=== PATIENT | male | born 1950 | race Caucasian/White ===

== ENCOUNTER 2020-03-21 11:26 | Inpatient (IN) | payer MEDICARE, OTHER ==
[~2020-03-21] VITALS: Ht 177.8 cm; Wt 78.9 kg
--- NOTE | 2020-03-21 11:31 | NUR ---
CALLED IN ED WAITING ROOM. NO ANSWER.
--- NOTE | 2020-03-21 11:44 | NUR ---
BIB FACILITY STAFF FOR MEDICAL CLERANCE FOR VIJAYA PSYCH ADMIT, COMBATIVE TO STAFF, TO ER BED 11, HOOKED TO MONITOR, CHANGED TO HOSP GOWN, WARM BLANKET PROVIDED, PATIENT STATES "I DON'T KNOW WHY AM I HERE, I DON'T WANT TO GO BACK TO THAT FACILITY AND I WANT TO GO HOME". EXPLAINED THE REASON WHY, PATIENT AGREED TO COOPERATE.
--- NOTE | 2020-03-21 11:44 | NUR ---
DR GARCIA AT BEDSIDE
[2020-03-21] MEDS ORDERED: ASCO-352 PO (11:57)
[2020-03-21] MEDS ORDERED: LEVE500T20 PO (11:57)
[2020-03-21] MEDS ORDERED: MAGN400O6 PO (11:57)
[2020-03-21] MEDS ORDERED: ATOR10TA PO (11:57)
[2020-03-21] MEDS ORDERED: ASPI-1169 PO (11:57)
[2020-03-21] MEDS ORDERED: ACET-868 PO (11:57)
[2020-03-21] MEDS ORDERED: CHOL100062 PO (11:57)
[2020-03-21] MEDS ORDERED: FAMO20TA8 PO (11:57)
[2020-03-21] MEDS ORDERED: DILT90TA10 PO (11:57)
[2020-03-21] MEDS ORDERED: LISI-603 PO (11:57)
[2020-03-21] MEDS ORDERED: VITA1TAB56 PO (11:57)
[2020-03-21 12:03] LABS: BASOPHILS # (AUTO) 0.1 /CMM (0.0-0.2); BASOPHILS % (AUTO) 0.8 % (0.0-2.0); EOSINOPHILS % (AUTO) 1.5 % (0.0-6.0); HEMATOCRIT 44 % (39-51); HEMOGLOBIN 14.6 g/dL (13.5-17.5); LYMPHOCYTES # (AUTO) 1.8 /CMM (0.8-4.8); LYMPHOCYTES % (AUTO) 26.6 % (20.0-44.0); MEAN CORPUSCULAR HGB CONC 34 g/dl (31.0-36.0); MEAN CORPUSCULAR VOLUME 94 fL (80-96); MONOCYTES # (AUTO) 0.8 /CMM (0.1-1.30); NEUTROPHILS # (AUTO) 3.9 /CMM (1.8-8.9); NEUTROPHILS % (AUTO) 59.1 % (43.0-81.0); PLATELET COUNT (AUTO) 193 /CMM (150-450); RED BLOOD CELL COUNT(AUTO) 4.62 MIL/uL (4.5-6.0); WHITE BLOOD COUNT (AUTO) 6.6 K/uL (4.3-11.0)
[2020-03-21 12:10] LABS: CALCIUM, SERUM 9.2 mg/dL (8.5-10.1); CARBON DIOXIDE 28 mmol/L (21-32); CHLORIDE 103 mmol/L (98-107); CREATININE 0.8 mg/dL (0.6-1.3); GLUCOSE 114 mg/dL (74-106); POTASSIUM 3.7 mmol/L (3.5-5.1); SODIUM SERUM 140 mmol/L (136-145); UREA NITROGEN, BLOOD 13 mg/dL (7-18)
--- NOTE | 2020-03-21 12:11 | NUR ---
CALLED PIZZA HUT ASSISTANT FOR EVAL, LEFT VOICEMAIL
[2020-03-21 12:16] LABS: ALANINE AMINOTRANSFERASE 27 U/L (12-78); ALBUMIN 4.2 g/dL (3.4-5.0); ALCOHOL, BLOOD < 3 mg/dL (0-0); ALKALINE PHOSPHATASE 104 U/L (46-116); ASPARTATE AMINOTRANSFERASE 16 U/L (15-37); BILIRUBIN,DIRECT 0.3 mg/dL (0.0-0.2); BILIRUBIN,TOTAL 1.2 mg/dL (0.2-1.0); TOTAL PROTEIN, SERUM 8.2 g/dL (6.4-8.2)
[2020-03-21 12:18] LABS: ACETAMINOPHEN < 10 ug/ml (10-30); SALICYLATE < 2.8 mg/dL (2.8-20.0)
[2020-03-21] MEDS ORDERED: OLANZAPINE 10 MG VIAL IM ONE ×2 (13:35→14:00)
--- NOTE | 2020-03-21 13:47 | NUR ---
URINE SAMPLE COLLECTED AND SENT TO LAB
--- NOTE | 2020-03-21 13:50 | NUR ---
RADAR MECHANIC JONAS BELL 30 MIN
[2020-03-21 13:54] LABS: APPEARANCE,URINE Clear (CLEAR); BILIRUBIN,URINE Negative (NEGATIVE); BLOOD, URINE Negative Ery/uL (NEGATIVE); COLOR,URINE Yellow (YELLOW); KETONES,URINE Negative (NEGATIVE); LEUKOCYTE ESTERASE ,URINE Trace (NEGATIVE); NITRITE, URINE Negative (NEGATIVE); PH,URINE 6.5 (5.0-8.0); PROTEIN,URINE Negative (NEGATIVE); UGLUCOSE Negative (NEGATIVE); UROBILINOGEN,URINE 0.2 EU/dL (0.2)
[2020-03-21 14:09] LABS: BACTERIA,URINE Rare /HPF (None Seen); RBC,URINE 0-2 /HPF (0-2); WBC,URINE 0-2 /HPF (0-3)
--- NOTE | 2020-03-21 16:01 | NUR ---
REPORT GIVEN TO ANGELICA BEARDEN OF GPS
--- NOTE | 2020-03-21 17:53 | NUR ---
GPS RN ADMITTING NOTE : GPS ADMISSION NOTE, RECEIVED PATIENT FROM [facility] . PATIENT ADMITTED ON A 5150 HOLD FOR DTO/GD PER HOLD PATIENT WERE AGITATED IN THE FACILITY THE 5150 WAS REVIEWED AND THE DOCUMENTATION IN THE 5150 HOLD APPEARS TO REFLECT THE PRESENTATION OF THE PATIENT. UPON FACE TO FACE ASSESSMENT PATIENT IS CURRENTLY AWAKE, HAS NO S/S OR COMPLAINTS OF PAIN. PATIENT IS DISPLAYING NO S/S OF APPARENT DISTRESS. PATIENT BREATHING IS UNLABORED WITH EQUAL RISE AND FALL OF THE CHEST. PATIENT IS ALERT AND ORIENTATED X 1 ON ROOM AIR. PATIENT IS NOTED TO BEING CONFUSED DELUSIONAL, DISHEVELED, DISORGANIZED,UNCOOPERATIVE, AND NEEDS REDIRECTION. PATIENT DENIES SUICIDE IDEATIONS AND HOMICIDAL IDEATIONS AT THIS TIME. PATIENT BELONGINGS WERE INVENTORIED AND CHECKED FOR CONTRABAND. ALL CONTRABAND REMOVED AND STORED IN PATIENT HALLWAY LOCKER. PATIENT ADVANCED DIRECTIVES PREFERENCE, IMMUNIZATIONS QUESTIONER COMPLETED. PATIENT BED SIDE RAILS ARE UP X 2 FOR SAFETY. PATIENT BED IS LOCKED, LOW AND I WILL CONTINUE TO MONITOR THIS PATIENT Q 15 MIN WITH THE HELP OF STAFF TO MAINTAIN SAFETY.WILL INDORSE TO INCOMING SHIFT RN FOR FULL ADMISSION AND CONTINUATION OF CARE.
[2020-03-21] MEDS ORDERED: TEMAZEPAM 7.5 MG CAPSULE PO PRN (18:00)
[2020-03-21] MEDS ORDERED: MAGNESIUM HYDROXIDE 30 ML UDC PO PRN ×2 (18:00)
[2020-03-21] MEDS ORDERED: BLOOD SUGAR DIAGNOSTIC 1 EACH STRIP IN ONE (18:00)
[2020-03-21] MEDS ORDERED: clonazePAM 0.5 MG TABLET PO PRN (18:00)
[2020-03-21] MEDS ORDERED: MAG HYDROX/AL HYDROX/SIMETH 30 ML UDC PO PRN (18:00)
[2020-03-21] MEDS ORDERED: ACETAMINOPHEN 325 MG TABLET PO PRN ×2 (18:00)
--- NOTE | 2020-03-21 19:01 | NUR ---
RECEIVED PATIENT IN BED AWAKE, ALERT, PACING IN HALLWAY NO ACUTE DISTRESS NOTED. PATIENT ANXIOUS, PARANOID, UNCCOERTIVE ,AGGRESSIVE REMAINS CONFUSED, NEEDY, DISORGANIZED, FORGETFUL, NEEDS FREQUENT REDIRECTION, REALITY ORIENTATION PROVIDED. SAFETY PRECAUTIONS IMPLEMENTED WILL CONTINUE TO MONITOR Q15MIN ROUNDS FOR SAFETY AND BEHAVIOR.
--- NOTE | 2020-03-21 20:00 | NUR ---
RN NOTES : REFUSE SKIN ASSESSMENT PT. REFUSED SKIN ASSESSMENT AND PICTURES , ENCOURAGED X3 PT. STRONGLY REFUSED , PER PT. MY SKIN IS OK AND I DONT WANT CHECK MY SKIN, PT. BEHAVIOUR VERY UNCOOERTIVE AGGRESSIVE PARANOID , NOT FOLLOWING ANY REDIRECTIONS , WILL CONTINUITY WITH CARE
[2020-03-21 21:00] VITALS: BP 136/78
[2020-03-21] MEDS: DILTIAZEM HCL 30 MG TABLET PO SCH (21:34)
[2020-03-21] MEDS: LISINOPRIL (20MG) 20 MG TABLET PO SCH (21:35)
[2020-03-21] MEDS: LEVETIRACETAM (250 MG) 250 MG TABLET PO SCH (21:35)
[2020-03-21] MEDS: ATORVASTATIN 10 MG TABLET PO SCH (21:36)
--- NOTE | 2020-03-22 06:50 | NUR ---
RN NOTES: PT. RESTING HIS ROOM , NO ACUTE CHANGES NOTED, ALL NEEDS ANTICIPATED, WILL CONTINUITY WITH CARE PT. REFUSED SKIN ASSESSMENT AND PICTURES , ENCOURAGED X3 , RISKS AND BENEFITS EXPLAINED, BUT PT. STRONGLY REFUSED , PER PT. MY SKIN IS OK AND I DONT WANT CHECK MY SKIN , WILL CONTINUITY WITH CARE.
[2020-03-22 07:18] LABS: ALBUMIN 3.6 g/dL (3.4-5.0); BILIRUBIN,TOTAL 1.2 mg/dL (0.2-1.0); CALCIUM, SERUM 9.2 mg/dL (8.5-10.1); CREATININE 0.9 mg/dL (0.6-1.3); POTASSIUM 3.9 mmol/L (3.5-5.1)
[2020-03-22 07:23] LABS: CHOLESTEROL 109 mg/dL (<200); HDL CHOLESTEROL 60 mg/dL (40-60); LDL 36 mg/dL (0-99); TRIGLYCERIDES 43 mg/dL (30-150)
[2020-03-22 08:00] VITALS: BP 137/67
[2020-03-22] MEDS: ASPIRIN 81 MG TAB.CHEW PO SCH (08:41)
[2020-03-22] MEDS: DILTIAZEM HCL 30 MG TABLET PO SCH ×4 (08:41→21:57)
[2020-03-22] MEDS: LEVETIRACETAM (250 MG) 250 MG TABLET PO SCH ×2 (08:41→21:58)
[2020-03-22] MEDS: LISINOPRIL (20MG) 20 MG TABLET PO SCH ×2 (08:42→21:58)
[2020-03-22] MEDS: FAMOTIDINE (20 MG) 20 MG TABLET PO SCH ×2 (08:44→17:01)
[2020-03-22] MEDS: CHOLECALCIFEROL 1,000 UNIT TABLET (VIT D3) PO SCH (09:00)
[2020-03-22] MEDS: ASCORBIC ACID 500 MG TABLET PO SCH (09:00)
[2020-03-22] MEDS: VITAMIN B COMP W-C 1 TAB TABLET PO SCH (09:00)
--- NOTE | 2020-03-22 09:31 | NUR ---
SNF CONTACT: SW contacted [facility] Address: [address] , [place] [address] and spoke with Michelle, admissions advisor who stated pt is able to return to the facility once stable for discharge. Per Michelle, pt does not have any family in [place] and has one sister that lives in [place] who is not involved with pts care. Per facility pt does not have capacity to make his own decisions and has been there since August 2019 and has been diagnosed with Dementia with Behavioral Disturbance. Per Michelle, there is no other collateral information on pt as pt is a poor historian and only alert to himself.
--- NOTE | 2020-03-22 09:45 | NUR ---
GPS RN note: med refusal Patient began refusing meds due to amount of pills. patient is aox1, paranoid, and unable to comprehend education for med management. Patient was convinced to take most medications but vitamins were withheld. Will attempt again later. Will continue to monitor Q15 for mood, safety and behavior.
--- NOTE | 2020-03-22 10:43 | NUR ---
INITIAL DISCHARGE PLAN: Pt will return to [facility] Address: [address] , [place] [address] once stable for discharge. SW will help form a safe and proper discharge in collaboration with .
--- NOTE | 2020-03-22 12:14 | NUR ---
GPS RN Note: Ditalizem BP med held for pulse of 59. will continue to monitor Q15
[2020-03-22 16:00] VITALS: BP 112/59
[2020-03-22] MEDS: OLANZAPINE 5 MG TABLET PO SCH (17:01)
[2020-03-22 19:30] VITALS: BP 119/55
[2020-03-22] MEDS: ATORVASTATIN 10 MG TABLET PO SCH (21:59)
[2020-03-23 08:00] VITALS: BP 113/61
[2020-03-23] MEDS: CHOLECALCIFEROL 1,000 UNIT TABLET (VIT D3) PO SCH (08:23)
[2020-03-23] MEDS: ASPIRIN 81 MG TAB.CHEW PO SCH (08:23)
[2020-03-23] MEDS: OLANZAPINE 5 MG TABLET PO SCH ×2 (08:23→16:31)
[2020-03-23] MEDS: VITAMIN B COMP W-C 1 TAB TABLET PO SCH (08:23)
[2020-03-23] MEDS: ASCORBIC ACID 500 MG TABLET PO SCH (08:23)
[2020-03-23] MEDS: LEVETIRACETAM (250 MG) 250 MG TABLET PO SCH ×2 (08:32→21:31)
[2020-03-23] MEDS: FAMOTIDINE (20 MG) 20 MG TABLET PO SCH ×2 (08:32→16:31)
[2020-03-23] MEDS: DILTIAZEM HCL 30 MG TABLET PO SCH ×4 (08:32→21:30)
--- NOTE | 2020-03-23 09:00 | NUR ---
RN NOTE- PT DISORGANIZED, ORIENTED TO SELF ONLY INTERACTIVE THOUGH LIMITED TO ESSENTIAL NEEDS PT COULDN'T OPEN MILK CONTAINER ETC PO INTAKE GOOD MED COMPLIANT THOUGH STATED TERSELY "YEAH... ILL TAKE THEM BUT GET ME HOME" CONFUSED TO TIME DATE PURPOSE. DENIES SI HI AH VH BUT DONT TRUST HIS THINKING PROCESS
[2020-03-23] MEDS: LISINOPRIL (20MG) 20 MG TABLET PO SCH ×2 (09:01→21:32)
[2020-03-23 16:00] VITALS: BP 110/59
[2020-03-23 20:17] VITALS: BP 141/88
[2020-03-23] MEDS: ATORVASTATIN 10 MG TABLET PO SCH (21:32)
--- NOTE | 2020-03-23 21:49 | NUR ---
RN NOTES : REFUSE SKIN ASSESSMENT PT. REFUSED SKIN REASSESSMENT AND PICTURES , ENCOURAGED X3 PT. STRONGLY REFUSED , PER PT. MY SKIN IS FINE AND I DONT WANT CHECK MY SKIN, PT. BEHAVIOUR VERY UNCOOERTIVE, PARANOID , WILL CONTINUITY WITH CARE.
--- NOTE | 2020-03-24 06:48 | NUR ---
RN NOTES: PT. RESTING HIS ROOM , NO ACUTE CHANGES NOTED, ALL NEEDS ANTICIPATED, WILL CONTINUITY WITH CARE.
[2020-03-24 08:00] VITALS: BP 105/47
[2020-03-24] MEDS: DILTIAZEM HCL 30 MG TABLET PO SCH ×6 (09:00→21:51)
[2020-03-24] MEDS: LISINOPRIL (20MG) 20 MG TABLET PO SCH ×2 (09:00→20:22)
[2020-03-24] MEDS: LEVETIRACETAM (250 MG) 250 MG TABLET PO SCH ×2 (10:58→20:21)
[2020-03-24] MEDS: ASPIRIN 81 MG TAB.CHEW PO SCH (10:59)
[2020-03-24] MEDS: ASCORBIC ACID 500 MG TABLET PO SCH (10:59)
[2020-03-24] MEDS: OLANZAPINE 5 MG TABLET PO SCH ×3 (10:59→17:56)
[2020-03-24] MEDS: VITAMIN B COMP W-C 1 TAB TABLET PO SCH (10:59)
[2020-03-24] MEDS: FAMOTIDINE (20 MG) 20 MG TABLET PO SCH ×3 (10:59→17:55)
--- NOTE | 2020-03-24 13:30 | NUR ---
PT. REFUSED AFTERNOON MEDS.CARDIZEM AND VIT.D3.
[2020-03-24] MEDS: CHOLECALCIFEROL 1,000 UNIT TABLET (VIT D3) PO SCH ×2 (13:43→13:52)
[2020-03-24 16:00] VITALS: BP 141/74
--- NOTE | 2020-03-24 18:10 | NUR ---
PT. REFUSED SANDI. MEDS-ZYPREXA,CARDIZEM AND PEPCID.TYPE PHOTOGRAPHY SUPERVISOR INFORMED.
[2020-03-24 20:00] VITALS: BP 152/72
[2020-03-24] MEDS: ATORVASTATIN 10 MG TABLET PO SCH (21:01)
[2020-03-24] MEDS ORDERED: DILTIAZEM HCL 30 MG TABLET ONE (21:47)
--- NOTE | 2020-03-25 06:46 | NUR ---
GPS-RN NOTE: PRN MOM MILK OF MAGNESIA 30ML PO GIVEN FOR CONSTIPATION. WILL CONTINUE TO MONITOR.
[2020-03-25 08:00] VITALS: BP 107/59
[2020-03-25] MEDS: DILTIAZEM HCL 30 MG TABLET PO SCH ×4 (09:00→21:36)
[2020-03-25] MEDS: OLANZAPINE 5 MG TABLET PO SCH ×2 (09:34→21:37)
[2020-03-25] MEDS: LISINOPRIL (20MG) 20 MG TABLET PO SCH ×2 (09:34→21:37)
[2020-03-25] MEDS: FAMOTIDINE (20 MG) 20 MG TABLET PO SCH ×2 (09:34→16:41)
[2020-03-25] MEDS: ASCORBIC ACID 500 MG TABLET PO SCH (09:34)
[2020-03-25] MEDS: VITAMIN B COMP W-C 1 TAB TABLET PO SCH (09:34)
[2020-03-25] MEDS: ASPIRIN 81 MG TAB.CHEW PO SCH (09:34)
[2020-03-25] MEDS: CHOLECALCIFEROL 1,000 UNIT TABLET (VIT D3) PO SCH (09:34)
[2020-03-25] MEDS: LEVETIRACETAM (250 MG) 250 MG TABLET PO SCH ×2 (09:35→21:20)
[2020-03-25 16:00] VITALS: BP 131/61
[2020-03-25 20:22] VITALS: BP 119/44
--- NOTE | 2020-03-25 21:00 | NUR ---
GPS-RN NOTE: PATIENT REFUSED SKIN BODY ASSESSMENT.
[2020-03-25] MEDS: ATORVASTATIN 10 MG TABLET PO SCH (21:20)
[2020-03-25 21:35] VITALS: BP 154/63
[2020-03-26 07:58] VITALS: BP 104/56
[2020-03-26] MEDS ORDERED: OLANZAPINE 5 MG TABLET PO SCH (09:00)
[2020-03-26] MEDS: DILTIAZEM HCL 30 MG TABLET PO SCH ×4 (09:00→21:59)
[2020-03-26] MEDS: LISINOPRIL (20MG) 20 MG TABLET PO SCH ×2 (09:00→22:00)
[2020-03-26] MEDS: CHOLECALCIFEROL 1,000 UNIT TABLET (VIT D3) PO SCH (09:05)
[2020-03-26] MEDS: LEVETIRACETAM (250 MG) 250 MG TABLET PO SCH ×2 (09:05→21:59)
[2020-03-26] MEDS: FAMOTIDINE (20 MG) 20 MG TABLET PO SCH ×2 (09:05→16:52)
[2020-03-26] MEDS: ASPIRIN 81 MG TAB.CHEW PO SCH (09:05)
[2020-03-26] MEDS: VITAMIN B COMP W-C 1 TAB TABLET PO SCH (09:05)
[2020-03-26] MEDS: ASCORBIC ACID 500 MG TABLET PO SCH (09:06)
[2020-03-26 16:00] VITALS: BP 136/72
[2020-03-26 20:19] VITALS: BP 147/57
[2020-03-26] MEDS: ATORVASTATIN 10 MG TABLET PO SCH (22:00)
[2020-03-26] MEDS: OLANZAPINE 5 MG TABLET PO SCH (22:01)
[2020-03-27 08:00] VITALS: BP 99/59
[2020-03-27] MEDS: ASCORBIC ACID 500 MG TABLET PO SCH (09:00)
[2020-03-27] MEDS: ASPIRIN 81 MG TAB.CHEW PO SCH (09:00)
[2020-03-27] MEDS: DILTIAZEM HCL 30 MG TABLET PO SCH ×4 (09:00→21:09)
[2020-03-27] MEDS: FAMOTIDINE (20 MG) 20 MG TABLET PO SCH ×2 (09:00→16:30)
[2020-03-27] MEDS: LISINOPRIL (20MG) 20 MG TABLET PO SCH ×2 (09:00→21:09)
[2020-03-27] MEDS: VITAMIN B COMP W-C 1 TAB TABLET PO SCH (09:00)
[2020-03-27] MEDS: CHOLECALCIFEROL 1,000 UNIT TABLET (VIT D3) PO SCH (09:00)
[2020-03-27] MEDS: OLANZAPINE 5 MG TABLET PO SCH ×2 (09:51→21:09)
[2020-03-27] MEDS: LEVETIRACETAM (250 MG) 250 MG TABLET PO SCH ×2 (09:52→21:09)
[2020-03-27 16:00] VITALS: BP 130/66
[2020-03-27 19:57] VITALS: BP 137/54
[2020-03-27] MEDS: ATORVASTATIN 10 MG TABLET PO SCH (21:08)
[2020-03-28 08:00] VITALS: BP_SYST 117; BP_DIAS 58; BP_DIAS 68
[2020-03-28] MEDS: OLANZAPINE 5 MG TABLET PO SCH ×2 (09:11→21:52)
[2020-03-28] MEDS: VITAMIN B COMP W-C 1 TAB TABLET PO SCH (09:11)
[2020-03-28] MEDS: FAMOTIDINE (20 MG) 20 MG TABLET PO SCH ×2 (09:11→16:58)
[2020-03-28] MEDS: CHOLECALCIFEROL 1,000 UNIT TABLET (VIT D3) PO SCH (09:11)
[2020-03-28] MEDS: ASPIRIN 81 MG TAB.CHEW PO SCH (09:11)
[2020-03-28] MEDS: LEVETIRACETAM (250 MG) 250 MG TABLET PO SCH ×2 (09:11→21:00)
[2020-03-28] MEDS: ASCORBIC ACID 500 MG TABLET PO SCH (09:12)
[2020-03-28] MEDS: LISINOPRIL (20MG) 20 MG TABLET PO SCH ×2 (09:15→21:00)
[2020-03-28] MEDS: DILTIAZEM HCL 30 MG TABLET PO SCH ×4 (11:06→21:00)
[2020-03-28 16:00] VITALS: BP 149/70
[2020-03-28 20:01] VITALS: BP 161/78
[2020-03-28] MEDS: ATORVASTATIN 10 MG TABLET PO SCH (21:52)
--- NOTE | 2020-03-28 21:52 | NUR ---
GPS RN NOTE: MEDICATION REFUSAL PT. REFUSED ALL SCHEDULED 2100 AND 2200 MEDICATIONS, ZYPREXA 7.5 MG, LIPITOR 10 MG, PRINIVIL 20 MG, CARDIZEM 90 MG, KEPPRA 500 MG. EXPLAINED RISKS AND BENEFITS. OFFERED 3 X AND STILL REFUSED. PT STATES " THAT'S TOO MANY PILLS. I DON'T WANT TO TAKE THEM." WILL CONTINUE TO MONITOR FOR SAFETY AND BEHAVIOR.
[2020-03-29 08:00] VITALS: BP 146/81
[2020-03-29] MEDS: FAMOTIDINE (20 MG) 20 MG TABLET PO SCH ×2 (09:04→16:26)
[2020-03-29] MEDS: ASCORBIC ACID 500 MG TABLET PO SCH (09:04)
[2020-03-29] MEDS: OLANZAPINE 5 MG TABLET PO SCH ×2 (09:05→21:44)
[2020-03-29] MEDS: LISINOPRIL (20MG) 20 MG TABLET PO SCH ×2 (09:06→21:45)
[2020-03-29] MEDS: VITAMIN B COMP W-C 1 TAB TABLET PO SCH (09:06)
[2020-03-29] MEDS: ASPIRIN 81 MG TAB.CHEW PO SCH (09:07)
[2020-03-29] MEDS: LEVETIRACETAM (250 MG) 250 MG TABLET PO SCH ×2 (09:07→21:45)
[2020-03-29] MEDS: CHOLECALCIFEROL 1,000 UNIT TABLET (VIT D3) PO SCH (09:12)
[2020-03-29] MEDS: DILTIAZEM HCL 30 MG TABLET PO SCH ×4 (10:39→21:41)
[2020-03-29 16:00] VITALS: BP 128/61
[2020-03-29 20:16] VITALS: BP 143/70
[2020-03-29] MEDS: ATORVASTATIN 10 MG TABLET PO SCH (21:45)
--- NOTE | 2020-03-29 22:00 | NUR ---
GPS RN NOTES: PATIENT TOOK ALL HIS NIGHT MEDICATIONS IN A "ONE-BY-ONE" MANNER ASKING THE INDICATION FOR SUCH. ENTRY LEVEL ASSISTANT MANAGER EXPLAINED TO HIM THE USE OF EACH MEDICATION.
[2020-03-30] MEDS: DILTIAZEM HCL 30 MG TABLET PO SCH ×4 (07:50→20:00)
[2020-03-30 08:00] VITALS: BP 102/56
[2020-03-30] MEDS: LISINOPRIL (20MG) 20 MG TABLET PO SCH ×2 (08:07→20:00)
[2020-03-30] MEDS: CHOLECALCIFEROL 1,000 UNIT TABLET (VIT D3) PO SCH (08:07)
[2020-03-30] MEDS: ASCORBIC ACID 500 MG TABLET PO SCH (08:08)
[2020-03-30] MEDS: ASPIRIN 81 MG TAB.CHEW PO SCH (08:08)
[2020-03-30] MEDS: VITAMIN B COMP W-C 1 TAB TABLET PO SCH (08:08)
[2020-03-30] MEDS: LEVETIRACETAM (250 MG) 250 MG TABLET PO SCH ×2 (08:08→20:01)
[2020-03-30] MEDS: OLANZAPINE 5 MG TABLET PO SCH ×2 (08:23→21:07)
[2020-03-30] MEDS: FAMOTIDINE (20 MG) 20 MG TABLET PO SCH ×2 (08:23→18:01)
--- NOTE | 2020-03-30 15:23 | NUR ---
INDIVIDUAL INTERVENTION: Pt was asleep and not easily roused by verbal cues.
[2020-03-30 16:00] VITALS: BP 150/66
[2020-03-30 20:18] VITALS: BP 165/72
[2020-03-30 21:00] VITALS: BP 148/69
[2020-03-30] MEDS: ATORVASTATIN 10 MG TABLET PO SCH (21:07)
[2020-03-31 08:00] VITALS: BP 115/56
[2020-03-31] MEDS: DILTIAZEM HCL 30 MG TABLET PO SCH ×4 (09:00→22:34)
[2020-03-31] MEDS: LISINOPRIL (20MG) 20 MG TABLET PO SCH ×2 (09:00→21:00)
[2020-03-31] MEDS: CHOLECALCIFEROL 1,000 UNIT TABLET (VIT D3) PO SCH (10:24)
[2020-03-31] MEDS: FAMOTIDINE (20 MG) 20 MG TABLET PO SCH ×2 (10:24→18:26)
[2020-03-31] MEDS: ASPIRIN 81 MG TAB.CHEW PO SCH (10:24)
[2020-03-31] MEDS: LEVETIRACETAM (250 MG) 250 MG TABLET PO SCH ×2 (10:24→21:44)
[2020-03-31] MEDS: OLANZAPINE 5 MG TABLET PO SCH ×2 (10:25→22:58)
[2020-03-31] MEDS: VITAMIN B COMP W-C 1 TAB TABLET PO SCH (10:26)
[2020-03-31] MEDS: ASCORBIC ACID 500 MG TABLET PO SCH (10:37)
[2020-03-31 16:00] VITALS: BP 139/95
--- NOTE | 2020-03-31 18:00 | NUR ---
med compliant,isolative.asking same questions over and over.
[2020-03-31 20:17] VITALS: BP 138/63
[2020-03-31] MEDS ORDERED: DILTIAZEM HCL 30 MG TABLET ONE (21:22)
--- NOTE | 2020-03-31 21:56 | NUR ---
GPS RN NOTE PATIENT'S BP IS 118/58, 68. LISINOPRIL HELD AT THIS TIME. WILL CONTINUE TO MONITOR FOR ANY CHANGE OF CONDITION.
--- NOTE | 2020-03-31 22:00 | NUR ---
GPS RN NOTE IN GPS OMNICELL, THERE WAS ONLY 60 MG OF CARDIZEM AVAILABLE AT THIS TIME BUT SCHEDULED DOSE IS 90 MG, NURSING EQUINE VET MADE AWARE & EQUINE VET ADVISED TO TAKE OUT 60 MG CARDIZEM FROM [facility] OMNICE & 30 MG WAS PROVIDED BY THE EQUINE VET.
[2020-03-31] MEDS: ATORVASTATIN 10 MG TABLET PO SCH (22:08)
[2020-04-01 08:00] VITALS: BP 108/61
[2020-04-01] MEDS: LISINOPRIL (20MG) 20 MG TABLET PO SCH ×2 (09:00→21:14)
[2020-04-01] MEDS: DILTIAZEM HCL 30 MG TABLET PO SCH ×4 (09:00→21:47)
[2020-04-01] MEDS: CHOLECALCIFEROL 1,000 UNIT TABLET (VIT D3) PO SCH (09:26)
[2020-04-01] MEDS: LEVETIRACETAM (250 MG) 250 MG TABLET PO SCH ×2 (09:26→21:14)
[2020-04-01] MEDS: VITAMIN B COMP W-C 1 TAB TABLET PO SCH (09:27)
[2020-04-01] MEDS: OLANZAPINE 5 MG TABLET PO SCH ×2 (09:28→22:12)
[2020-04-01] MEDS: ASCORBIC ACID 500 MG TABLET PO SCH (09:28)
[2020-04-01] MEDS: FAMOTIDINE (20 MG) 20 MG TABLET PO SCH ×2 (09:33→17:44)
[2020-04-01] MEDS: ASPIRIN 81 MG TAB.CHEW PO SCH (09:33)
[2020-04-01 16:00] VITALS: BP 137/66
[2020-04-01 20:12] VITALS: BP 137/58
--- NOTE | 2020-04-01 21:00 | NUR ---
GPS RN NOTE: REFUSED SKIN ASSESSMENT PATIENT REFUSED SKIN ASSESSMENT TONIGHT, DESPITE OF RISKS & BENEFIT EXPLANATIONS. EASILY ANXIOUS & RESTLESS. FOCUSED ON GOING HOME.
[2020-04-01] MEDS: ATORVASTATIN 10 MG TABLET PO SCH (22:11)
--- NOTE | 2020-04-01 22:15 | NUR ---
GPS RN NOTE IN GPS OMNICELL, THERE WAS 5 PILLS = 150 MG OF CARDIZEM AVAILABLE AT THIS TIME. NEEDED TO TAKE OUT 3 TABS = 90 MG FOR SCHEDULED DOSE & REMAINING BALANCE SUPPOSE TO BE 2 TABS. BUT MISTAKENLY TAKEN OUT ONLY 2 TABS FIRST. CHARGE NURSE MADE AWARE. THEN ANOTHER 1 TAB WAS TAKEN OUT. THERE IS 2 TABS LEFT IN THE OMNICELL BUT COUNT SHOWS 1 TAB REMAINING IN THE OMNICELL. 90 MG OF DOSE WAS ADMINISTERED TO THE PATIENT ORDERED. WILL INFORM PHARMACY IN AM.
--- NOTE | 2020-04-02 05:53 | NUR ---
GPS RN NOTE PATIENT SLEPT WELL AT NIGHT, NO AGITATION NOTED.
[2020-04-02 08:00] VITALS: BP 106/56
[2020-04-02] MEDS: DILTIAZEM HCL 30 MG TABLET PO SCH ×4 (09:00→21:59)
[2020-04-02] MEDS: LISINOPRIL (20MG) 20 MG TABLET PO SCH ×2 (09:00→22:00)
[2020-04-02] MEDS: CHOLECALCIFEROL 1,000 UNIT TABLET (VIT D3) PO SCH (09:40)
[2020-04-02] MEDS: VITAMIN B COMP W-C 1 TAB TABLET PO SCH (09:40)
[2020-04-02] MEDS: ASCORBIC ACID 500 MG TABLET PO SCH (09:41)
[2020-04-02] MEDS: LEVETIRACETAM (250 MG) 250 MG TABLET PO SCH ×2 (09:41→21:59)
[2020-04-02] MEDS: OLANZAPINE 5 MG TABLET PO SCH ×2 (09:41→22:01)
[2020-04-02] MEDS: FAMOTIDINE (20 MG) 20 MG TABLET PO SCH ×2 (09:41→17:00)
[2020-04-02] MEDS: ASPIRIN 81 MG TAB.CHEW PO SCH (09:43)
--- NOTE | 2020-04-02 14:37 | NUR ---
Discharge Planning: MARTHA spoke with and faxed patient's updated clinicals to Yen at [facility] ( ) who reviewed it and stated that they are going to relocate [place] [address] (ph: [phone] fax: [phone]) and spoke with Victorina Sheet Metal Worker who accepted the patient and is ready to admit the patient tomorrow. This journalists and other writers also faxed Victorina the patient's updated Negative COVID results an progress notes.
[2020-04-02 16:00] VITALS: BP 103/55
[2020-04-02 19:57] VITALS: BP 138/72
[2020-04-02] MEDS: ATORVASTATIN 10 MG TABLET PO SCH (22:01)
[2020-04-03 08:00] VITALS: BP 121/64
[2020-04-03] MEDS: OLANZAPINE 5 MG TABLET PO SCH (08:25)
[2020-04-03] MEDS: CHOLECALCIFEROL 1,000 UNIT TABLET (VIT D3) PO SCH (08:25)
[2020-04-03] MEDS: VITAMIN B COMP W-C 1 TAB TABLET PO SCH (08:25)
[2020-04-03] MEDS: ASCORBIC ACID 500 MG TABLET PO SCH (08:25)
[2020-04-03] MEDS: DILTIAZEM HCL 30 MG TABLET PO SCH (08:26)
[2020-04-03] MEDS: FAMOTIDINE (20 MG) 20 MG TABLET PO SCH (08:27)
[2020-04-03] MEDS: ASPIRIN 81 MG TAB.CHEW PO SCH (08:27)
[2020-04-03] MEDS: LEVETIRACETAM (250 MG) 250 MG TABLET PO SCH (08:27)
[2020-04-03 08:29] VITALS: BP 121/64
[2020-04-03] MEDS: LISINOPRIL (20MG) 20 MG TABLET PO SCH (08:29)
--- NOTE | 2020-04-03 12:05 | NUR ---
WRAP YARN SORTER NOTE: 70 YEAR OLD MALE DISCHARGED TO [facility] [place] IN STABLE CONDITION. COMPLIANT WITH MEDICATIONS, COOPERATIVE WITH TREATMENT PLANS. PATIENT DENIES SI/HI AND INSTRUCTED TO GO TO THE CLOSEST ER, CALL 911 OR INFORM EMPLOYEE AT SNF IF DEVELOPING SI/HI. BEHAVIOR AND AGGRESSION IMPROVED. PSYCHIATRIC TREATMENT PLANS MET. MEDICAL TREATMENT PLANS CONTINUE AND REFERRED TO MD AT SNF FOR CONTINUAL MONITORING. EDUCATED PT ABOUT AFTER CARE PLAN AND COPY PROVIDED. RETURNED PERSONAL BELONGINGS TO PATIENT. MEDICATIONS RECONCILED WITH DR. LIAO AND TAMIKO MARTIN DIRECTOR OF PUBLIC HEALTH. REPORT GIVEN TO JAMES BEARDEN. PATIENT SIGNED DISCHARGE PAPERWORK. REFUSED SKIN PICTURES THROUGHOUT HOSPITALIZATION. PT LEFT THE UNIT AT 1205 VIA GURNEY WITH EMS.
== END 2020-04-03 12:00 | DRG 885 ==
LOC: ER 11:35 → GPS 17:27
PROVIDERS: ADMIT Psychiatry & Neurology Psychiatry; ATTEND Nurse Practitioner Acute Care
DX: F29 Unspecified psychosis not due to a substance or known physiological condition (principal); F01.50 Vascular dementia, unspecified severity, without behavioral disturbance, psychotic disturbance, mood disturbance, and anxiety; G93.41 Metabolic encephalopathy; F41.9 Anxiety disorder, unspecified; F03.90 Unspecified dementia, unspecified severity, without behavioral disturbance, psychotic disturbance, mood disturbance, and anxiety; I10 Essential (primary) hypertension; K21.9 Gastro-esophageal reflux disease without esophagitis; E78.5 Hyperlipidemia, unspecified; Z88.1 Allergy status to other antibiotic agents; Z86.14 Personal history of Methicillin resistant Staphylococcus aureus infection; Z79.82 Long term (current) use of aspirin; Z79.899 Other long term (current) drug therapy; E55.9 Vitamin D deficiency, unspecified; G40.909 Epilepsy, unspecified, not intractable, without status epilepticus; Z91.81 History of falling; Z73.6 Limitation of activities due to disability; F32.9 Major depressive disorder, single episode, unspecified; F17.210 Nicotine dependence, cigarettes, uncomplicated; F10.10 Alcohol abuse, uncomplicated; Y90.0 Blood alcohol level of less than 20 mg/100 ml
CPT/HCPCS: 36415; 80048-TC; 80053-TC; 80061-TC; 80076-TC; 80305; 81000-TC; 82962-TC; 85025-TC; 87081-TC; A6403; C9803-CS; G0480; J3490

== ENCOUNTER 2020-06-10 12:57 | Inpatient (IN) | payer MEDICARE, OTHER ==
[~2020-06-10] VITALS: Ht 180.3 cm; Wt 76.2 kg
[~2020-06-10 12:57] MED LIST: ACET-868 PO; ASCO-352 PO; ASPI-1169 PO; ATOR10TA PO; CHOL100062 PO; DILT90TA10 PO; FAMO20TA8 PO; LEVE500T20 PO; LISI-603 PO; MAGN400O6 PO; VITA1TAB56 PO
--- NOTE | 2020-06-10 13:30 | NUR ---
GPS/RN ADMITTED DIRECT ADMIT FROM [facility] ON 5150 HOLD FOR GD. BROUGHT TO THE [facility] ER BY POLICE. PT CONFUSED, POOR HISTORIAN UNABLE TO PROVIDE ANY MEANINGFUL HISTORY. REFUSED TO SIGN ADMITTING PAPER, REFUSED FULL SKIN ASSESSMENT AND ACCUCHECK. AMBULATORY NO ACUTE DISTRESS. PROPERTY CHECKED FOR CONTRABAND.
[2020-06-10 13:44] VITALS: BP 151/81
[2020-06-10] MEDS ORDERED: MAG HYDROX/AL HYDROX/SIMETH 30 ML UDC PO PRN (14:00)
[2020-06-10] MEDS ORDERED: TEMAZEPAM 7.5 MG CAPSULE PO PRN (14:00)
[2020-06-10] MEDS ORDERED: LORAZEPAM 1 MG TABLET PO PRN (14:00)
[2020-06-10] MEDS ORDERED: MAGNESIUM HYDROXIDE 30 ML UDC PO PRN (14:00)
[2020-06-10] MEDS ORDERED: BLOOD SUGAR DIAGNOSTIC 1 EACH STRIP IN ONE (14:00)
[2020-06-10] MEDS ORDERED: ACETAMINOPHEN 325 MG TABLET PO PRN (14:00)
[2020-06-10] MEDS ORDERED: SULF1TAB48 PO (14:22)
[2020-06-10] MEDS ORDERED: QUET25TA PO (14:22)
[2020-06-10] MEDS ORDERED: FOLI0.4T2 PO (14:22)
[2020-06-10] MEDS ORDERED: DONE5TAB34 PO (14:22)
[2020-06-10] MEDS ORDERED: NICO-676 TD (14:24)
[2020-06-10] MEDS ORDERED: THIA100T68 PO (14:24)
[2020-06-10] MEDS ORDERED: OLAN5TAB3 PO (14:24)
--- NOTE | 2020-06-10 14:34 | NUR ---
GPS/RN DR CROOK NOTIFIED OF ADMISSION
[2020-06-10 16:00] VITALS: BP 147/70
[2020-06-10] MEDS: LISINOPRIL (20MG) 20 MG TABLET PO SCH (18:45)
[2020-06-10] MEDS: DILTIAZEM HCL 30 MG TABLET PO SCH (18:45)
[2020-06-10] MEDS: LEVETIRACETAM (250 MG) 250 MG TABLET PO SCH (18:45)
[2020-06-10] MEDS: SULFAMETH/TRIMETH 800/160 MG 1 UDTAB TABLET PO SCH (18:45)
[2020-06-10] MEDS: FAMOTIDINE (20 MG) 20 MG TABLET PO SCH (18:46)
[2020-06-10 19:33] VITALS: BP 147/67
[2020-06-10] MEDS: DONEPEZIL 5 MG TABLET PO SCH (21:33)
[2020-06-11] MEDS: DILTIAZEM HCL 30 MG TABLET PO SCH ×4 (00:14→17:01)
--- NOTE | 2020-06-11 06:42 | NUR ---
GPS RN CLOSING NOTE: PT IS CURRENTLY LAYING ON BED SLEEPING. SLEPT 7HR THIS SHIFT. NO S/S OF DISTRESS. RESPIRATION EVEN AND UNLABORED WITH EQUAL RISE AND FALL OF THE CHEST ON ROOM AIR. ALL PT CARE NEEDS MET ANTICIPATED. BED IS LOCKED AND IN LOWEST POSITION. WILL CONTINUE TO MONITOR AND ENDORSE TO AM SHIFT.
[2020-06-11 08:00] VITALS: BP 109/51
[2020-06-11 08:36] LABS: ALBUMIN 3.4 g/dL (3.4-5.0); BILIRUBIN,TOTAL 0.9 mg/dL (0.2-1.0); CREATININE 1.2 mg/dL (0.6-1.3); POTASSIUM 3.5 mmol/L (3.5-5.1); TOTAL PROTEIN, SERUM 7.1 g/dL (6.4-8.2)
[2020-06-11] MEDS: LEVETIRACETAM (250 MG) 250 MG TABLET PO SCH ×2 (08:41→16:16)
[2020-06-11] MEDS: SULFAMETH/TRIMETH 800/160 MG 1 UDTAB TABLET PO SCH ×2 (08:41→16:16)
[2020-06-11] MEDS: FAMOTIDINE (20 MG) 20 MG TABLET PO SCH ×2 (08:41→16:16)
[2020-06-11] MEDS: LISINOPRIL (20MG) 20 MG TABLET PO SCH ×2 (08:42→16:16)
[2020-06-11] MEDS: NICOTINE PATCH (14MG) 14 MG PATCH.TD24 TD SCH (08:42)
[2020-06-11] MEDS: THIAMINE HCL 100 MG TABLET PO SCH (08:44)
[2020-06-11] MEDS: FOLIC ACID 1 MG TABLET PO SCH (08:44)
[2020-06-11 08:47] LABS: THYROID STIMULATING HORMONE 1.002 uIU/mL (0.358-3.74)
--- NOTE | 2020-06-11 09:00 | NUR ---
RN NOTE- PT IN BED QUIET CONFUSE DISORGANIZED DENIES SI, WITHDRAWN MED COMPLIANT PO INTAKE FAIR
--- NOTE | 2020-06-11 09:49 | NUR ---
MARTHA FAMILY CONTACT: SW contacted pts sister Miranda ([phone]) for collateral information, she states she does not know where pt has been living and states pt has refused to speak with her or his other sister. Sister states, pt is and has no children she also states that last she knew pt was living in a SNF and states she received a call from the SNF stating that pt did not want to be there anymore. She states that after that call she does not know if pt left AMA or if he was discharged. Sister states pt has refused for her to be involved in his care and states she does not want to make herself responsible for him.
--- NOTE | 2020-06-11 09:57 | NUR ---
MARTHA INITIAL DISCHARGE PLAN: Pt needs SNF placement. SW will help form a safe and proper discharge in collaboration with .
[2020-06-11] MEDS: OLANZAPINE ZYDIS 5 MG TAB.RAPDIS PO SCH ×2 (11:19→21:36)
[2020-06-11 16:00] VITALS: BP 98/62
[2020-06-11 20:00] VITALS: BP 123/50
[2020-06-11] MEDS: DONEPEZIL 5 MG TABLET PO SCH (21:35)
[2020-06-12] MEDS: DILTIAZEM HCL 30 MG TABLET PO SCH ×4 (06:00→17:08)
[2020-06-12 08:00] VITALS: BP 106/61
[2020-06-12] MEDS: LEVETIRACETAM (250 MG) 250 MG TABLET PO SCH ×2 (08:23→17:08)
[2020-06-12] MEDS: SULFAMETH/TRIMETH 800/160 MG 1 UDTAB TABLET PO SCH ×2 (08:24→17:08)
[2020-06-12] MEDS: LISINOPRIL (20MG) 20 MG TABLET PO SCH ×2 (08:24→17:09)
[2020-06-12] MEDS: FOLIC ACID 1 MG TABLET PO SCH (08:24)
[2020-06-12] MEDS: THIAMINE HCL 100 MG TABLET PO SCH (08:24)
[2020-06-12] MEDS: OLANZAPINE ZYDIS 5 MG TAB.RAPDIS PO SCH ×2 (08:24→21:06)
[2020-06-12] MEDS: FAMOTIDINE (20 MG) 20 MG TABLET PO SCH ×2 (08:24→17:08)
[2020-06-12] MEDS: NICOTINE PATCH (14MG) 14 MG PATCH.TD24 TD SCH (08:25)
--- NOTE | 2020-06-12 09:00 | NUR ---
RN NOTE- QUIET CONFUSED DISORGANIZED DENIES SI, WITHDRAWN MED COMPLIANT PO INTAKE FAIR, PT DOES ENGAGE A BIT MORE THAN YESTERDAY
[2020-06-12 16:00] VITALS: BP 128/67
--- NOTE | 2020-06-12 19:45 | NUR ---
GPS RN NOTE: PATIENT RESTING IN BED, NO ACUTE DISTRESS NOTED. BREATHING EVEN AND UNLABORED, NO SOB NOTED. PATIENT CALM AND COOPERATIVE AT THIS TIME. BED LOCKED AND IN LOWEST POSITION, CALL LIGHT IN REACH. WILL CONTINUE TO MONITOR.
[2020-06-12] MEDS: DONEPEZIL 5 MG TABLET PO SCH (21:05)
[2020-06-12 21:24] VITALS: BP 124/64
[2020-06-13] MEDS: DILTIAZEM HCL 30 MG TABLET PO SCH ×4 (00:15→18:00)
[2020-06-13 08:00] VITALS: BP 112/52
[2020-06-13] MEDS: FOLIC ACID 1 MG TABLET PO SCH (08:24)
[2020-06-13] MEDS: OLANZAPINE ZYDIS 5 MG TAB.RAPDIS PO SCH ×2 (08:24→20:45)
[2020-06-13] MEDS: FAMOTIDINE (20 MG) 20 MG TABLET PO SCH ×2 (08:24→16:24)
[2020-06-13] MEDS: NICOTINE PATCH (14MG) 14 MG PATCH.TD24 TD SCH (08:24)
[2020-06-13] MEDS: SULFAMETH/TRIMETH 800/160 MG 1 UDTAB TABLET PO SCH ×2 (08:25→16:24)
[2020-06-13] MEDS: LEVETIRACETAM (250 MG) 250 MG TABLET PO SCH ×2 (08:25→16:25)
[2020-06-13] MEDS: THIAMINE HCL 100 MG TABLET PO SCH (08:25)
[2020-06-13] MEDS: LISINOPRIL (20MG) 20 MG TABLET PO SCH ×2 (08:32→16:25)
--- NOTE | 2020-06-13 11:10 | NUR ---
SNF REFERRAL: MARTHA faxed SNF referral to [facility] [address] [facility] [facility] [place] [address] for review.
[2020-06-13 16:00] VITALS: BP 148/63
[2020-06-13 20:42] VITALS: BP 118/67
[2020-06-13] MEDS: DONEPEZIL 5 MG TABLET PO SCH (21:15)
[2020-06-14] MEDS: DILTIAZEM HCL 30 MG TABLET PO SCH ×5 (00:45→23:05)
--- NOTE | 2020-06-14 06:22 | NUR ---
GPS-RN NOTE: DILTIAZEM DOSE AT 0600 NOT ADMINISTERED D/T DECREASED BP.
--- NOTE | 2020-06-14 07:36 | NUR ---
GPS RN NOTE PATIENT IN BED RESTING COMFORTABLY. PATIENT IN NO ACUTE DISTRESS. NO SOB NOTED. PATIENT BREATHING IS EVEN AND UNLABORED. DENIES SI/HI. SAFETY PRECAUTIONS IN PLACE. WILL CONTINUE TO MONITOR.
[2020-06-14 08:00] VITALS: BP 103/52
[2020-06-14] MEDS: NICOTINE PATCH (14MG) 14 MG PATCH.TD24 TD SCH (08:13)
[2020-06-14] MEDS: LEVETIRACETAM (250 MG) 250 MG TABLET PO SCH ×2 (08:14→17:35)
[2020-06-14] MEDS: FAMOTIDINE (20 MG) 20 MG TABLET PO SCH ×2 (08:15→17:34)
[2020-06-14] MEDS: FOLIC ACID 1 MG TABLET PO SCH (08:15)
[2020-06-14] MEDS: OLANZAPINE ZYDIS 5 MG TAB.RAPDIS PO SCH ×2 (08:15→20:29)
[2020-06-14] MEDS: SULFAMETH/TRIMETH 800/160 MG 1 UDTAB TABLET PO SCH ×2 (08:17→17:35)
[2020-06-14] MEDS: THIAMINE HCL 100 MG TABLET PO SCH (08:17)
[2020-06-14] MEDS: LISINOPRIL (20MG) 20 MG TABLET PO SCH ×2 (08:17→17:35)
--- NOTE | 2020-06-14 08:19 | NUR ---
SNF REFERRAL: MARTHA faxed SNF referral to [facility] ([facility]) [address] [facility] [address] P: [phone] for review.
--- NOTE | 2020-06-14 12:54 | NUR ---
SNF CONTACT: SW received a call from Buddy Spark Plug Tester at [facility] Address: [address] [place] [address] stating pt has been accepted to the facility.
--- NOTE | 2020-06-14 14:45 | NUR ---
GROUP NOTE: Pt is unable to participate in group therapy due to only being alert and oriented to self. Pt is unable to engage in conversation. Pt is confused, disoriented, disorganized, and remains isolative and withdrawn.
[2020-06-14 14:48] LABS: BILIRUBIN,URINE NEGATIVE (NEGATIVE); BLOOD, URINE NEGATIVE Ery/uL (NEGATIVE); COLOR,URINE YELLOW (YELLOW); LEUKOCYTE ESTERASE ,URINE NEGATIVE (NEGATIVE); NITRITE, URINE NEGATIVE (NEGATIVE); PROTEIN,URINE NEGATIVE (NEGATIVE); UGLUCOSE NEGATIVE (NEGATIVE); UROBILINOGEN,URINE 0.2 EU/dL (0.2)
[2020-06-14 16:00] VITALS: BP 146/69
--- NOTE | 2020-06-14 18:31 | NUR ---
GPS RN NOTE PATIENT IN BED RESTING COMFORTABLY. PATIENT IN NO ACUTE DISTRESS. NO SOB NOTED. PATIENT BREATHING IS EVEN AND UNLABORED. DENIES SI/HI. SAFETY PRECAUTIONS IN PLACE. SAFETY CHECKS PERFORMED. WILL ENDORSE CARE TO PM SHIFT FOR JOCY.
[2020-06-14 19:53] VITALS: BP 135/64
[2020-06-14] MEDS: DONEPEZIL 5 MG TABLET PO SCH (21:12)
[2020-06-15] MEDS: DILTIAZEM HCL 30 MG TABLET PO SCH ×4 (06:00→23:42)
--- NOTE | 2020-06-15 06:07 | NUR ---
DILTIAZEM 90 MG NOT GIVEN, BP 98/70 HR 62
[2020-06-15 08:00] VITALS: BP 132/62
[2020-06-15] MEDS: LEVETIRACETAM (250 MG) 250 MG TABLET PO SCH ×2 (08:24→17:17)
[2020-06-15] MEDS: FAMOTIDINE (20 MG) 20 MG TABLET PO SCH ×2 (08:24→17:17)
[2020-06-15] MEDS: OLANZAPINE ZYDIS 5 MG TAB.RAPDIS PO SCH ×2 (08:25→21:49)
[2020-06-15] MEDS: LISINOPRIL (20MG) 20 MG TABLET PO SCH ×2 (08:25→17:00)
[2020-06-15] MEDS: THIAMINE HCL 100 MG TABLET PO SCH (08:25)
[2020-06-15] MEDS: NICOTINE PATCH (14MG) 14 MG PATCH.TD24 TD SCH (08:25)
[2020-06-15] MEDS: FOLIC ACID 1 MG TABLET PO SCH (08:25)
--- NOTE | 2020-06-15 09:00 | NUR ---
RN NOTE- PT IRRITABLE THOUGH MED COMPLIANT, PO INTAKE GOOD ISOLATIVE WITHDRAWN AND SLEEPY. DENIES ALL AT PRESENT
[2020-06-15 20:03] VITALS: BP 148/67
--- NOTE | 2020-06-15 20:13 | NUR ---
GPS RN NOTE: Received patient from morning nurse. Patient in bed, awake and alert. Able to make needs known. Patient does not complain of pain or discomfort at this time. Patient breathing well, no SOB or acute respiratory distress. Breathing equal and unlabored. Patient ambulatory with steady gait. Safety precaution in place, bed in the lowest level, bed is locked, side rails x2 are up, and call light is within reach. Will continue to monitor.
[2020-06-15] MEDS: DONEPEZIL 5 MG TABLET PO SCH (21:49)
[2020-06-15 23:00] VITALS: BP 131/66
[2020-06-16] MEDS: DILTIAZEM HCL 30 MG TABLET PO SCH ×4 (05:50→23:30)
[2020-06-16 05:52] VITALS: BP 113/53
[2020-06-16] MEDS: NICOTINE PATCH (14MG) 14 MG PATCH.TD24 TD SCH (08:13)
[2020-06-16] MEDS: THIAMINE HCL 100 MG TABLET PO SCH (08:18)
[2020-06-16] MEDS: LEVETIRACETAM (250 MG) 250 MG TABLET PO SCH ×2 (08:18→16:11)
[2020-06-16] MEDS: LISINOPRIL (20MG) 20 MG TABLET PO SCH ×2 (08:18→16:12)
[2020-06-16] MEDS: OLANZAPINE ZYDIS 5 MG TAB.RAPDIS PO SCH ×2 (08:18→21:54)
[2020-06-16] MEDS: FOLIC ACID 1 MG TABLET PO SCH (08:18)
[2020-06-16] MEDS: FAMOTIDINE (20 MG) 20 MG TABLET PO SCH ×2 (08:19→16:11)
[2020-06-16 08:29] VITALS: BP 119/64
[2020-06-16 16:00] VITALS: BP 130/76
--- NOTE | 2020-06-16 19:00 | NUR ---
OPENING NOTES: RECEIVED SITTING IN THE TV ROOM WATCHING TV. WHEN NAME SPOKEN HE WILL GIVE EYE CONTACT. HE WILL TALK TO THE OTHER PATIENTS. SWALLOWS W/O PROBLEMS. HE WILL QUESTION WHAT THE MEDICATIONS ARE. HE HAS A FLAT AFFECT. SPEECH CLEAR VERBALIZES HIS NEEDS.
[2020-06-16 19:45] VITALS: BP 133/70
[2020-06-16 20:29] VITALS: BP 133/70
[2020-06-16] MEDS: DONEPEZIL 5 MG TABLET PO SCH (21:54)
--- NOTE | 2020-06-17 04:48 | NUR ---
CLOSING NOTES: FLAT AFFECT HE WAS QUESTIONING THE PILLS AT THE BEGINNING OF THE SHIFT "ARE THESE THE SAME PILLS I HAVE BEEN GETTING" TAKES 1 PILL AT A TIME SWALLOWS W/O PROBLEMS. RESTORIL GIVEN AND EFFECTIVE
[2020-06-17] MEDS ORDERED: DILTIAZEM HCL 30 MG TABLET ONE (05:58)
[2020-06-17] MEDS: DILTIAZEM HCL 30 MG TABLET PO SCH ×4 (06:00→23:18)
[2020-06-17 06:27] VITALS: BP 80/36
--- NOTE | 2020-06-17 06:28 | NUR ---
Blood pressure this am 0600 80/36 HR 54 patiient arouse easily and alert call placed to MD Kendall and explained to him the patient received a dose last night 90 mg and is to receive this dose Q6 hours told him the B/P and let him know Im holding the cardizen this am. He agreed and said the day shift MD will deal with this matbe he needs to see a corporate affairs manager
[2020-06-17 08:00] VITALS: BP 100/60
[2020-06-17] MEDS: LISINOPRIL (20MG) 20 MG TABLET PO SCH ×2 (08:21→17:25)
[2020-06-17] MEDS: FOLIC ACID 1 MG TABLET PO SCH (09:08)
[2020-06-17] MEDS: OLANZAPINE ZYDIS 5 MG TAB.RAPDIS PO SCH ×2 (09:08→21:54)
[2020-06-17] MEDS: FAMOTIDINE (20 MG) 20 MG TABLET PO SCH ×2 (09:09→17:26)
[2020-06-17] MEDS: LEVETIRACETAM (250 MG) 250 MG TABLET PO SCH ×2 (09:09→17:26)
[2020-06-17] MEDS: THIAMINE HCL 100 MG TABLET PO SCH (09:09)
[2020-06-17] MEDS: NICOTINE PATCH (14MG) 14 MG PATCH.TD24 TD SCH (09:09)
[2020-06-17 16:00] VITALS: BP 130/63
[2020-06-17 20:00] VITALS: BP 148/74
[2020-06-17 20:33] LABS: CALCIUM, SERUM 8.9 mg/dL (8.5-10.1); CREATININE 0.9 mg/dL (0.6-1.3); POTASSIUM 4.2 mmol/L (3.5-5.1)
[2020-06-17] MEDS: DONEPEZIL 5 MG TABLET PO SCH (21:55)
[2020-06-18] MEDS: DILTIAZEM HCL 30 MG TABLET PO SCH ×3 (06:00→18:09)
--- NOTE | 2020-06-18 06:21 | NUR ---
GPS RN NOTE HELD SCHEDULED CARDIZEM 30MG DUE TO DECREASED BP PER DR ORDERS (HOLD FOR SYSTOLIC LESS THAN 100, DIASTOLIC LESS THAN 60). PTS B/P: 93/42, HR: 57. WILL CONTINUE TO MONITOR Q15MIN FOR SAFETY AND BEHAVIOR.
[2020-06-18 08:00] VITALS: BP 127/69
[2020-06-18] MEDS: FAMOTIDINE (20 MG) 20 MG TABLET PO SCH ×2 (08:12→17:18)
[2020-06-18] MEDS: LEVETIRACETAM (250 MG) 250 MG TABLET PO SCH ×2 (08:12→17:18)
[2020-06-18] MEDS: OLANZAPINE ZYDIS 5 MG TAB.RAPDIS PO SCH ×2 (08:13→21:08)
[2020-06-18] MEDS: FOLIC ACID 1 MG TABLET PO SCH (08:13)
[2020-06-18] MEDS: THIAMINE HCL 100 MG TABLET PO SCH (08:13)
[2020-06-18] MEDS: LISINOPRIL (20MG) 20 MG TABLET PO SCH ×2 (08:13→17:19)
[2020-06-18] MEDS: NICOTINE PATCH (14MG) 14 MG PATCH.TD24 TD SCH (08:14)
--- NOTE | 2020-06-18 09:00 | NUR ---
RN NOTE- QUIET WITHDRAWN AND OCCASIONALLY IRRITABLE AND OPPOSITIONAL TO CARE. ALERT AND ORIENTED TO PERSON PLACE. CONFUSED AT TIMES. THOUGH DENIES SI HI AH VH. BLUNTED AFFECT, POOR EYE CONTACT AND MINIMAL ENGAGEMENT NOTED.
--- NOTE | 2020-06-18 14:41 | NUR ---
GROUP NOTE: SW encouraged pt to attend group therapy on this day. Pt was asleep and not easily roused by verbal cues, pt is only being alert and oriented to self. Pt is confused, disoriented, disorganized, and remains isolative and withdrawn.
[2020-06-18 16:00] VITALS: BP 125/60
[2020-06-18] MEDS: DONEPEZIL 5 MG TABLET PO SCH (21:09)
[2020-06-18 21:52] VITALS: BP 114/56
[2020-06-19] MEDS: DILTIAZEM HCL 30 MG TABLET PO SCH ×3 (06:00→12:43)
--- NOTE | 2020-06-19 06:53 | NUR ---
GPS RN NOTE 0600 CARDIZEM 30MG 3/TABS/90MG NOT ADMINISTERED ORDERED D/T LOW BP. BP102/58, P 66. ALL OTHER PT CARE NEEDS MET ANTICIPATED. PT SLEEPING COMFORTABLY, NO S/S OF DISTRESS. WILL CONTINUE TO MONITOR AND ENDORSE TO AM SHIFT.
[2020-06-19 08:00] VITALS: BP 104/55
[2020-06-19] MEDS: OLANZAPINE ZYDIS 5 MG TAB.RAPDIS PO SCH (08:49)
[2020-06-19] MEDS: FOLIC ACID 1 MG TABLET PO SCH (08:49)
[2020-06-19] MEDS: FAMOTIDINE (20 MG) 20 MG TABLET PO SCH (08:49)
[2020-06-19] MEDS: LEVETIRACETAM (250 MG) 250 MG TABLET PO SCH (08:49)
[2020-06-19] MEDS: NICOTINE PATCH (14MG) 14 MG PATCH.TD24 TD SCH (08:50)
[2020-06-19] MEDS: LISINOPRIL (20MG) 20 MG TABLET PO SCH (08:50)
--- NOTE | 2020-06-19 08:50 | NUR ---
DISCHARGE NOTE: Pt will be discharged at 12:00pm [facility] to [facility] Address: [address] [place] [address] . Pts sister Miranda ([phone]) has been notified via voicemail. Pts mood is anxious with congruent affect. Pt denies visual/auditory hallucinations and denies suicidal/homicidal ideation. Pt is alert and oriented x2, to self and place and continues to state that he wants to go home but is unable to state where home is other than in [place]." Per pts Sister, pt does not have a home. Pt is ambulatory and appears appropriately dressed and groomed. Pt will be under the care of Psychiatrist: Dr. Mecca Cota Address: [address] [place] [address] and Shoe Cutter: Dr. Robert Jeff Address: [address] [place] [address] [place] [id number] . The multidisciplinary exit care form was done, printed, signed, and given to the patient. Addendum: 06/19/20 at 1254 by MARY THOMAS Pt will be discharged at 1:00pm via [facility] to [facility] ([facility]) [address] [facility] [address] . Pts sister Miranda ([phone]) has been notified and agrees with discharge plan. Psychiatrist: Dr. Merrick Kaet [address] [address] [phone]. Shoe Cutter: Dr. Bo Cotter [address] [phone]
[2020-06-19] MEDS: THIAMINE HCL 100 MG TABLET PO SCH (08:52)
--- NOTE | 2020-06-19 09:00 | NUR ---
rn note- NO CHANGE. QUIET WITHDRAWN AND OCCASIONALLY IRRITABLE AND OPPOSITIONAL TO CARE. ALERT AND ORIENTED TO PERSON PLACE. CONFUSED AT TIMES. THOUGH DENIES SI HI AH VH. BLUNTED AFFECT, POOR EYE CONTACT AND MINIMAL ENGAGEMENT NOTED.
[2020-06-19 12:43] VITALS: BP 140/61
--- NOTE | 2020-06-19 14:55 | NUR ---
RN NOTE- DISCHARGE/ PT DC AT THIS TIME VIA GUDOMINIC TO [facility] . DC INSTRUCTIONS CALLED IN WITH REPORT TO FACILITY. DC INSTRUCTIONS REVIEWED W AMBULANCE CREW AND UNDERSTOOD. VS STABLE, DENIES SI HI AH VH. CONFUSED BUT ORIENTED TO PERSON PLACE. SKIN INTACT THOUGH PT REFUSING PHOTOGRAPHS AND ALSO REFUSING PNA AND INFLUENZA VACCINES. VALUABLES RETURNED TO PT, ESCORTED OFF UNIT BY THIS RN.
== END 2020-06-19 14:55 | DRG 885 ==
LOC: GPS 12:57
PROVIDERS: ADMIT Psychiatry & Neurology Psychiatry; ATTEND Student in an Organized Health Care Education/Training Program
DX: F29 Unspecified psychosis not due to a substance or known physiological condition (principal); E46 Unspecified protein-calorie malnutrition; F23 Brief psychotic disorder; N39.0 Urinary tract infection, site not specified; F41.9 Anxiety disorder, unspecified; I10 Essential (primary) hypertension; Z73.6 Limitation of activities due to disability; G30.9 Alzheimer's disease, unspecified; F02.80 Dementia in other diseases classified elsewhere, unspecified severity, without behavioral disturbance, psychotic disturbance, mood disturbance, and anxiety; E88.09 Other disorders of plasma-protein metabolism, not elsewhere classified; F25.9 Schizoaffective disorder, unspecified; Z68.23 Body mass index [BMI] 23.0-23.9, adult
CPT/HCPCS: 36415; 80048-TC; 80053-TC; 80061-TC; 81000-TC; 84443-TC; 87081-TC